=== PATIENT | female | born 1980 | race African-American/Black ===

== ENCOUNTER 2017-04-26 12:47 | Emergency (ER) | payer OTHER ==
[~2017-04-26] VITALS: Ht 162.6 cm; Wt 78.5 kg
--- NOTE | ~2017-04-26 | EKG ---
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 : 1980 Requested By: Michael Kline Order Number: [id number] MD: Omar Doherty Measurements Intervals [place] Rate: 62 P: 37 ME: 155 QRS: -16 QRSD: 92 T: 6 QT: 443 QTc: 450 Interpretive Statements Sinus rhythm Nonspecific ST segment abnormality Poor R wave progression Compared to ECG 07/17/2015 14:39:41 No significant changes Electronically Signed On 04-27-2017 10:44:48 CDT by Omar Doherty [email or web address] <ELECTRONICALLY SIGNED> By: Omar Doherty MD, [facility] 04/27/17 1044 D: [id number] Omar Doherty MD, FACC /EPI
[~2017-04-26 12:47] MED LIST: ATIVAN2 MG PO; COLACE100 MG PO; IRON325 PO; LORAZEPAM 1 MG T1 M1 PO; NOHOMEMEDICATIONS; NORCO 5-325 TA1 EACH PO; PREVACID30 MG PO; PROTONIX40 MG PO; VALIUM5 MG PO; XANAX 0.25 MG0.25 MG PO; ZANTAC 150MG T150 M1 PO
[2017-04-26] MEDS ORDERED: IRON325 PO (13:08)
[2017-04-26 14:28] LABS: ABSOLUTE NEUTROPHILS 2.9 thou/uL (1.4-8.2); BASOPHILS 0.9 % (0.0-2.0); EOSINOPHILS 1.2 % (0.0-3.0); HEMATOCRIT 36.9 % (37.0-47.0); HEMOGLOBIN 11.7 gm/dL (12.0-15.0); LYMPHOCYTES 25.9 % (24.0-44.0); MCHC 31.7 g/dL (28.0-37.0); MCV 72.5 fL (80.0-100.0); MONOCYTES 8.2 % (1.0-8.0); PLATELET COUNT 198 thou/uL (150-400); POLYS 63.8 % (36.0-66.0); RDW 31.1 % (10.5-14.5); WBC 4.6 thou/uL (4.0-11.0)
[2017-04-26 14:30] LABS: MANUAL DIFF NO
[2017-04-26 14:35] LABS: CREATININE 0.7 mg/dL (0.6-1.0); POTASSIUM 3.3 mmol/L (3.5-5.1)
[2017-04-26 14:56] VITALS: BP 162/102
[2017-04-26 15:11] LABS: ANISOCYTOSIS 1+; HYPOCHROMASIA 1+; MICROCYTES 2+; PLATELET ESTIMATE NORMAL
== END 2017-04-26 14:58 | disposition home or self-care (01) ==
LOC: ER 12:47
PROVIDERS: Nurse Practitioner
DX: I10 Essential (primary) hypertension (principal); E87.6 Hypokalemia; D57.3 Sickle-cell trait; F10.99 Alcohol use, unspecified with unspecified alcohol-induced disorder